=== PATIENT | male | born 1975 | race Caucasian/White ===

== ENCOUNTER 2017-05-19 08:28 | Observation (INO) ==
[2017-05-19 09:10] LABS: Bilirubin,Urine Negative (Negative); Blood,Urine Negative (Negative); Clarity,Urine Clear (Clear); Color,Urine Yellow (Yellow); Glucose,Urine (UA) Normal (Normal); Ketones,Urine Negative (Negative); Leukocyte Esterase,Urine Negative (Negative); Nitrite,Urine Negative (Negative); Protein,Urine Negative (Neg-Trace); Specific Gravity,Urine > 1.030 (1.010-1.025); Urobilinogen,Urine Normal (Normal)
--- NOTE | 2017-05-19 10:00 | Emergency Department Note ---
Disposition Clinical Impression: Syncope, near Disposition: Admitted As Inpatient Condition: Fair Time of Disposition: 10:41 Syncope HPI - General Chief Complaint: ED Syncope Stated Complaint: Syncopal episode Time Seen by Provider: 05/19/17 09:41 Source: patient Mode of arrival: ambulatory Limitations: no limitations Nursing Notes Reviewed: Yes Vital Signs Reviewed: Yes - History of Present Illness HPI Narrative: Patient is a 41-year-old male who presents to [facility] ED with a chief complaint of near syncopal episode. Patient states that he has been sick with a sinus infection the last couple days. Patient woke up around 1 AM feeling that his face was swollen and his right wrist itching. States he felt like she was having trouble breathing. He then went to see his who did not feel that there was any swelling in his face. States he felt lightheaded and then has a period of 30 seconds where he does not remember anything. His states that he did not pass out but seemed groggy. Denies any nausea, vomiting, fever or chills. No chest pain, difficulty breathing, abdominal pain, problems with urination or bowel movements. Past medical history significant for prior myocarditis in which she was cleared by lining feller 3 years ago. Pt Subjective Complaint: almost passed out Onset (ago): Just [employer] Duration: second(s) Prodromal Symptoms: lightheaded Witnessed: yes - by bystander Context: during exertion Injuries Sustained Associated with Event: head Current Symptoms: none History: none Treatments prior to arrival: none Associated trauma secondary to event: Yes - Related Data Allergies Allergy/AdvReac Type Severity Reaction Status Date / Time No Known Allergies Allergy Verified 05/19/17 08:37 All systems ED: reviewed and negative except as stated. Past Medical History - Past Medical History Attestation: Yes The following information was validated with the patient. Source: patient Medical history: Reports: no medical history Psychiatric history: Reports: no psych history - Social History Smoking Status: Never smoker Smokeless Tobacco Status: Yes Alcohol use: Reports: rarely Drug use: Reports: none Physical Exam - General General appearance: alert, in no apparent distress - Head Head exam: atraumatic, normocephalic, normal inspection - Eye Eye exam: Present: normal appearance, PERRL, EOMI - ENT ENT exam: normal exam, normal oropharynx, mucous membranes moist, TM's normal bilaterally - Neck Neck exam: Present: normal inspection, full ROM, trachea midline - Chest Chest inspection: Present: normal inspection, symmetric chest wall rise - Respiratory Respiratory exam: Present: normal lung sounds bilaterally - Cardiovascular Cardiovascular exam: Present: regular rate, normal rhythm, normal heart sounds - Abdominal Exam Abdominal exam: Present: soft, Non-Tender. Absent: tenderness, distention, guarding, rebound, rigidity - Extremities Exam Extremities exam: Present: normal inspection, full ROM. Absent: tenderness, pedal edema - Back Exam Back exam: Present: normal inspection, full ROM. Absent: tenderness - Neurological Exam Neurological exam: Present: alert, oriented X3 - Psychiatric Psychiatric exam: Present: normal affect, normal mood - Skin Skin exam: Present: warm, dry, intact, normal color Course Course Narrative: Patient seen and examined. Near syncopal episode. EKG, chest x-ray 2 view ordered. LVH seen on EKG. With hx of prior cardiac abnormality on echo, will admit for cardiology evaluation and repeat echocardiogram. - Reevaluation(s) Reevaluation #1: I discussed with lining feller Dr. Curtis who will consult on the patient. Would like a CBC added. I also discussed with hospitalist who has accepted patient for admission. Time: 11:52 Vital Signs Temperature 97.8 F 05/19/17 08:32 Pulse Rate 64 05/19/17 08:32 Respiratory Rate 16 05/19/17 08:32 Blood Pressure 122/74 05/19/17 08:32 O2 Sat by Pulse Oximetry 99 05/19/17 08:32 Temperature 97.8 F 05/19/17 08:32 Pulse Rate 71 05/19/17 10:48 Respiratory Rate 16 05/19/17 10:48 Blood Pressure 120/87 05/19/17 10:48 O2 Sat by Pulse Oximetry 95 05/19/17 10:48 Oxygen Delivery Oxygen Delivery Room Air Syncope - Medical Records Medical records reviewed: Yes I reviewed the patient's medical records. - Lab Data Lab results reviewed: Yes I reviewed the patient's lab results. Lab Results 05/19/17 Range/Units 08:46 Urine Color Yellow (Yellow) Urine Clarity Clear (Clear) Urine pH 6.0 (5.0-8.0) pH Units Ur Specific [place] > 1.030 H (1.010-1.025) Urine Protein Negative (Neg-Trace) mg/dL Urine Glucose (UA) Normal (Normal) mg/dL Urine Ketones Negative (Negative) mg/dL Urine Blood Negative (Negative) Urine Nitrite Negative (Negative) Urine Bilirubin Negative (Negative) Urine Urobilinogen Normal (Normal) mg/dL Ur Leukocyte Esterase Negative (Negative) - Radiology Data Radiology results reviewed: Yes I reviewed the patient's radiology results. Chest X-Ray 05/19/17 09:58 IMPRESSION: Normal chest. D/ / 05/19/2017 10:11:01 Ronaldo Mcgraw MD / [facility] Interpreting Provider: Ronaldo Mcgraw MD - EKG Data EKG attestation: Yes I reviewed and interpreted this EKG. EKG results narrative: EKG done at 834 shows normal sinus rhythm with a rate of [address] elevation or depression. Normal axis. Mild LVH noted. Attestation Statement - Attestation Attestation: I examined this patient and my medical decision-making was reviewed with the Resident Physician. I agree with the documented findings, disposition and treatment plan as described except to the extent set forth below. Near-syncope L Young patient with a history of viral myocarditis and left ventricular hypertrophy verified by previous echocardiogram. EKG is suggestive of LVH, no other abnormality. Hemodynamically normal and asymptomatic now, but given his history of structural heart disease he cannot be discharged. I will add on an echocardiogram and have him admitted for observation and cardiac monitoring.
[2017-05-19 11:59] LABS: Basophils % 0.3 %; Eosinophils # 0.2 K/mcL (0.0-0.6); Eosinophils % 3.2 %; Hematocrit 45.9 % (37.5-50.1); Hemoglobin 15.7 g/dL (12.9-16.9); Immature Granulocytes % 0.4 % (0-4); Lymphocytes # 1.2 K/mcL (0.6-4.6); Lymphocytes % 16.6 %; Mean Corpuscular HGB Conc 34.2 g/dL (31.6-35.5); Mean Corpuscular Hemoglobin 31.5 pg (28.0-33.3); Mean Platelet Volume 9.8 fL (9.4-12.4); Monocytes # 0.6 K/mcL (0.0-1.3); Monocytes % 8.2 %; Neutrophils # 4.9 K/mcL (1.6-8.9); Platelet Count 170 K/mcL (140-400); Red Blood Count 4.99 M/mcL (4.19-5.50); Red Cell Distribution Width 12.5 % (11.5-14.5); Segmented Neutrophils % 71.3 %
[2017-05-19 12:00] LABS: BUN/Creatinine Ratio 36 (6-26); Blood Urea Nitrogen 29 mg/dL (6-20); Calcium 9.6 mg/dL (8.6-10.3); Carbon Dioxide 26 mEq/L (23-29); Chloride 106 mEq/L (98-107); Glucose 102 mg/dL (70-105); Osmolality,Calculated 294 (280-300); Potassium 3.9 mEq/L (3.5-5.1); Sodium 139 mEq/L (136-145); eGFR For African Americans > 60 (> 60); eGFR For Non-African Americans > 60 (> 60)
[2017-05-19] MEDS ORDERED: Naloxone 0.4 MG/ML INJ IVP PRN (12:25)
[2017-05-19] MEDS ORDERED: Acetaminophen 325 MG TABLET PO PRN (12:25)
[2017-05-19] MEDS ORDERED: 0.9 % Sodium Chloride 1,000 ML IVC SCH (12:30)
--- NOTE | 2017-05-19 12:35 | Internal Med History&Physical ---
Date of Encounter: 05/19/17 Time of Encounter: 12:31 Assessment and Plan (1) Syncope, near Current visit: Yes Status: Acute Unclear etiology Full precautions stump, telemetry, troponins, echocardiogram Ordering orthostatics, and LFTs, CK Order CT scan of the head Sequential compression devices for DVT prophylaxis. The patient will be admitted for observation, full code. Time spent on this admission 40 minutes (2) History of viral myocarditis Current visit: Yes Status: Acute Order CK and troponins Echocardiogram (3) Conjunctivitis Current visit: Yes Status: Acute Start ophthalmic ciprofloxacin Qualifiers: Conjunctivitis type: acute Acute conjunctivitis type: unspecified Laterality: bilateral Qualified Code(s): H10.33 - Unspecified acute conjunctivitis, bilateral (4) LVH (left ventricular hypertrophy) Current visit: Yes Status: Acute per EKG findings Internal Medicine - H&P: HPI Chief complaint: Near syncope Admitted From: Emergency Dept History of present illness: Mr. Reynoso is a 41 year old male with a past medical history of myocarditis who comes emergency room complaining of passing out at 1 AM, the past 3 days she has been dealing with a sinus infection and evaluated this morning he woke up was full and slightly short of breath, lightheaded and cannot recall whether he passed out completely or not. Apparently these was witnessed by his (she was not present during my examination) I told him that he did not completely pass out but was extremely confused for about 3 minutes. Recently, his and son have been dealing with an upper respiratory infection likely viral. He complains of minimal tenderness over sinuses. Denies any chest pain, no shortness of breath at the moment, no ear pain. The patient hit his head, no CT scan has been done yet, ER ordered a cardiology consult and echocardiogram. EKG shows LVH. Past Med Surg Social Fam HX - Past Medical History Medical history: other (Myocarditis likely viral in 2010) Psychiatric history: no psych history - Past Surgical History Surgical History: no surgical history - Social History Smoking Status: Never smoker Smokeless Tobacco Status: Yes Alcohol use: rarely Drug use: none - Additional Family History Additional family history: Father with CAD/stents Internal Medicine - H&P: Meds No Known Home Drugs 05/19/17 [History] 3 Allergy/AdvReac Type Severity Reaction Status Date / Time No Known Allergies Allergy Verified 05/19/17 08:37 All Systems PM: A 10-system review of systems was performed and is negative for pertinent findings except as documented above in the HPI. Review of systems: No fevers no neck rigidity, the patient has been complaining of some redness in his eyes with crusts found this morning. No abdominal pain, diarrhea and dehydration. Other systems out of the 10 reviewed were negative - Constitutional Vitals: Temp Pulse Resp BP Pulse Ox 97.9 F 62 16 93/70 95 05/19/17 12:14 05/19/17 12:14 05/19/17 12:14 05/19/17 12:14 05/19/17 12:14 General appearance: Present: A&O X 3 - Head Head exam: Present: atraumatic, normocephalic Additional comments: Erythema over both eyes/conjunctiva - Eye Eye exam: Present: PERRL, conjuntiva pink, sclera anicteric Pupils: Present: PERRL - Neck Neck exam general surgery: Present: supple, trachea midline. Absent: lymphadenopathy - Respiratory Respiratory exam: Present: CTAB. Absent: accessory muscle use, rales, rhonchi, wheezes - Cardiovascular Cardiovascular exam: Present: RRR, +S1, +S2. Absent: diastolic murmur, gallop, rubs, systolic murmur - GI/Abdominal GI/Abdominal exam: Present: normal bowel sounds, soft, no peritoneal signs. Absent: distended, tenderness - Extremities Exam Extremities exam: Present: warm, radial pulses palpable and symmetrical. Absent : calf tenderness, cyanotic, pedal edema - Neurological Exam Neurological exam: Present: CN II-XII intact, oriented X3, no focal deficits. Absent: pronater drift, facial droop, speech deficit - Skin Skin exam: Present: dry, intact Internal Med - H&P Results - Labs CBC & Chem 7: 05/19/17 11:49 05/19/17 11:31 Labs: Short CBC 05/19/17 Range/Units 11:49 WBC 6.9 (4.3-11.1) K/mcL Hgb 15.7 (12.9-16.9) g/dL Hct 45.9 (37.5-50.1) % Plt Count 170 (140-400) K/mcL Neutrophils # 4.9 (1.6-8.9) K/mcL
[2017-05-19 13:25] LABS: Troponin I < 0.03 ng/mL (< 0.04)
[2017-05-19 13:26] LABS: Alanine Aminotransferase 18 Units/L (7-52); Albumin 4.5 g/dL (3.5-5.7); Albumin/Globulin Ratio 2.1 (1.1-2.2); Alkaline Phosphatase 79 Units/L (34-104); Aspartate Amino Transferase 16 Units/L (13-39); Bilirubin,Direct 0.1 mg/dL (0.0-0.2); Bilirubin,Indirect 0.2 mg/dL (0.0-1.2); Bilirubin,Total 0.3 mg/dL (0.3-1.0); Globulin 2.1 g/dL (2.4-3.5); Total Protein 6.6 g/dL (6.4-8.9)
[2017-05-19] MEDS: Ciprofloxacin OPTH Soln 2.5 ML BOTTLE BOTH EYES SCH ×3 (14:38→20:42)
[2017-05-20] MEDS: Ciprofloxacin OPTH Soln 2.5 ML BOTTLE BOTH EYES SCH ×3 (00:50→07:04)
[2017-05-20 11:36] VITALS: BP 118/79
--- NOTE | 2017-05-20 12:41 | Discharge Summary ---
Date of Encounter: 05/20/17 Time of Encounter: 12:39 - Discharge Diagnosis (1) Near syncope Priority: Primary Status: Acute Comments: on day of arrival. Patient reports waking up with a sensation of throat swelling followed by an episode of near-syncope. Episode was witnessed by who reportedly stated patient did not lose consciousness (no family at bedside for collateral). CXR nonacute. Head CT negative. TTE with EF 55-60%, no valvular abnormalities, no wall motion abnormalities. BP normotensive. Possibly vasovagal syncope and/or stress/anxiety induced. Patient reports being under a lot of stress at work and thinks anxiety may have contributed to the episode with sensation of throat swelling. He had no symptom recurrence while inpatient and was discharged home in stable condition with outpatient follow-up. Patient advised to return to ER if symptoms recurred. (2) Conjunctivitis Priority: Primary Status: Acute Comments: Bilaterally. Continue Cipro eyedrops for 5 days. Qualifiers: Conjunctivitis type: acute Acute conjunctivitis type: unspecified Laterality: bilateral Qualified Code(s): H10.33 - Unspecified acute conjunctivitis, bilateral Hospital course: Mr. Reynoso is a 41 year old male with no significant past medical history who presented to [facility] on 05/19/2017 after a near-syncopal episode. He was placed in observation status for further workup and treatment. He had an unremarkable workup including a negative chest x-ray, head CT nonacute. TTE with EF 55-60% and no valvular abnormalities, no wall motion abnormalities. He had no symptom recurrence while inpatient was discharged home in stable condition with outpatient follow-up. Please see assessment and plan for further details. - Time Spent with Patient Total time spent providing and/or coordinating discharge services: - Discharge Medications Home Medications: Ciprofloxacin OPTH Soln [Ciloxan OPTH Soln] 2 drop BOTH EYES Q4HR bottle [Rx] Allergies/Adverse Reactions: 3 Allergy/AdvReac Type Severity Reaction Status Date / Time No Known Allergies Allergy Verified 05/19/17 08:37 Date of admission: 05/19/17 11:46 Primary care physician: PCP NONE - Constitutional Vitals: Temp Pulse Resp BP Pulse Ox 97.8 F 56 15 118/79 97 05/20/17 11:33 05/20/17 11:33 05/20/17 11:33 05/20/17 11:33 05/20/17 11:33 General appearance: Present: A&O X 3 - Head Head exam: Present: atraumatic, normocephalic - Eye Eye exam: Present: conjunctival injection, PERRL, conjuntiva pink, sclera anicteric Pupils: Present: PERRL - Neck Neck exam general surgery: Present: supple, trachea midline. Absent: lymphadenopathy - Respiratory Respiratory exam: Present: CTAB. Absent: accessory muscle use, rales, rhonchi, wheezes - Cardiovascular Cardiovascular exam: Present: RRR, +S1, +S2. Absent: diastolic murmur, gallop, rubs, systolic murmur - GI/Abdominal GI/Abdominal exam: Present: normal bowel sounds, soft, no peritoneal signs. Absent: distended, tenderness - Extremities Exam Extremities exam: Present: warm, radial pulses palpable and symmetrical. Absent : calf tenderness, cyanotic, pedal edema - Neurological Exam Neurological exam: Present: CN II-XII intact, oriented X3, no focal deficits. Absent: pronater drift, facial droop, speech deficit - Skin Skin exam: Present: dry, intact - Patient Status Disposition: Home, Self-Care Condition: Good Functional capacity at discharge: independent ambulation Overall status at discharge: patient is back to baseline - Discharge Instructions Instructions: Syncope (DC), Conjunctivitis (DC), Ciprofloxacin (Into the eye) Follow Up With: Martin Kunz MD [Family Provider] - NONE,PCP [Primary Care Provider] - - Diet and Activity Activity: increase activity as tolerated Diet: advance to your usual diet
--- NOTE | 2017-05-21 16:02 | Electrocardiograph Report ---
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
== END 2017-05-20 14:05 | disposition home or self-care (01) ==
LOC: EMEROO 08:28 → 2SOUTHHOLD 08:28 → 3BNU 18:13
PROVIDERS: ADMIT Internal Medicine; ATTEND Registered Nurse